=== PATIENT | female | born 2000 | race Caucasian/White ===

== ENCOUNTER 2021-09-03 23:41 | Emergency (ER) | payer BC ==
[2021-09-03] MEDS ORDERED: predniSONE 20 MG TABLET (UD) PO ONE (23:49)
[2021-09-03] MEDS ORDERED: diphenhydrAMINE HCL 50 MG CAPSULE PO ONE (23:50)
[2021-09-03] MEDS ORDERED: diphenhydrAMINE HCL 50 MG CAPSULE ONE (23:52)
[2021-09-03] MEDS ORDERED: predniSONE 20 MG TABLET (UD) ONE (23:52)
[2021-09-03 23:57] VITALS: BP 139/82; PULSE 93; TEMP 99; BMI 29.2
== END 2021-09-04 00:52 | disposition home or self-care (01) ==
LOC: FER 23:41
DX: L50.0 Allergic urticaria (principal)
CPT/HCPCS: 99283-25